=== PATIENT | male | born 1995 | race African-American/Black ===

== ENCOUNTER 2020-04-21 00:13 | Emergency (ER) | payer BC, MEDICAID ==
[~2020-04-21] VITALS: Ht 170.2 cm; Wt 80.0 kg
[2020-04-21 05:17] VITALS: BP 120/70
== END 2020-04-21 05:19 | disposition home or self-care (01) ==
LOC: ER 00:13
DX: F41.9 Anxiety disorder, unspecified (principal); F17.290 Nicotine dependence, other tobacco product, uncomplicated; R06.02 Shortness of breath; R09.81 Nasal congestion
CPT/HCPCS: 71045; 87635; 99284